=== PATIENT | female | born 1975 | race Asian ===

== ENCOUNTER → 2017-05-07 | Outpatient (CLI) | payer BC ==
[~2017-05-07] MED LIST: ANTIVERT PO; BACLOFEN10 MG PO; CLEOCIN PO; HCTZ PO; NO MEDICATIONS; NORCO 10-325 TA1 TAB PO; VICODIN 5/500 T1 TAB PO; ZOFRAN ODT4 MG PO; ZOFRAN PO
--- NOTE | ~2017-05-07 | MY29 ---
[facility] A Service of [facility] RADIOLOGY TEXT RESULTS PATIENT: DAYRON CAM LOCATION: [facility] : 75 UNIT #: [id number] AGE: [address]: Torrie Cam MD SEX: F ORDER DR: [id number] [facility] [address] [place], [place] [address] [id number] O MR#: [id number] Acc #: [id number] NAME: DAYRON CAM : 1975 SEX: F STUDY DATE/TIME: 05/07/2017 9:24 UNIT: [facility] ROOM: STUDY DESCRIPTION: MY ROHINI SCREENING W/ CAD BILAT Attending Physician: Torrie Cam M.D. Referring Physician: Torrie Cam M.D. Ordering Physician: Torrie Cam M.D. Primary Care Physician: Torrie Cam M.D. MEDICAL IMAGING REPORT This report is preliminary unless electronic signature is present EXAM Digital screening mammogram 05/07/2017 [facility]. HISTORY 41-year-old woman for baseline mammogram. No risk elevation. COMPARISON None. FINDINGS Digital imaging of each breast was completed utilizing a two-view examination of each breast in craniocaudal and mediolateral-oblique projections. Review and interpretation of digital mammograms include a second review in conjunction with FDA-approved CAD device. There is a normal parenchymal presentation bilaterally consistent with the patient's age. There are no breast masses imaged and no parenchymal asymmetry is visualized. There are no suspicious microcalcifications and I see no focal architectural disturbance. IMPRESSION Negative screening digital mammogram. One-year followup recommended. Patients over the age of 40 are entered into a reminder system with target due date for the next mammogram. A result letter will also be sent to the patient. BIRADS: 1 Negative Dictated by... Genaro Vasquez M.D. [facility] A Service [facility] RADIOLOGY TEXT RESULTS PATIENT: DAYRON CAM LOCATION: [facility] : 75 UNIT #: [id number] AGE: [address]: Torrie Cam MD SEX: F ORDER DR: THIS IS AN ELECTRONICALLY VERIFIED REPORT Genaro Vasquez M.D. at 05/07/2017 3:50 PM Christine TD: 05/07/2017 14:24 JOB #: [id number] MEDICAL IMAGING REPORT Page 1 of 1 COPY
== END | disposition home or self-care (01) ==
LOC: CWCC 08:46
DX: Z12.31 Encounter for screening mammogram for malignant neoplasm of breast (principal)
CPT/HCPCS: G0202